=== PATIENT | male | born 1965 | race Caucasian/White ===

== ENCOUNTER 2019-01-23 18:25 | Inpatient (IN) ==
--- NOTE | 2019-01-23 19:49 | Ultrasound Report ---
US venous doppler LE RT CLINICAL HISTORY: Right leg pain COMPARISON STUDY: No previous studies for comparison. FINDINGS: Grayscale, color flow, and spectral waveform analysis was performed. There is nonocclusive thrombus within the common femoral vein. There is expansile occlusive thrombus within the superficial femoral vein. There is occlusive thrombus in the popliteal vein. There is occlusive thrombus within one of 2 posterior tibial veins. There is occlusive thrombus within the right peroneal vein. There is thrombus within the anterior tibial vein. There is thrombus within the profunda vein. IMPRESSION: Extensive acute right lower extremity DVT. Electronically signed by: Med Cruz M.D. 01/23/2019 7:48 PM
[2019-01-23 20:30] LABS: Basophils # (auto) 0.08 K/uL (0-0.2); Basophils % (auto) 0.7 %; Eosinophils # (auto) 0.37 K/uL (0-0.5); Eosinophils % (auto) 3.2 %; Hematocrit (blood only) 46.7 % (42-52); Hemoglobin 17.1 g/dL (14.0-18.0); Immature Granulocytes # (auto) 0.05 K/uL (0.00-0.02); Immature Granulocytes % (auto) 0.4 %; Lymphocytes # (auto) 2.22 K/uL (1.2-3.4); Lymphocytes % (auto) 19.5 %; Mean Corpuscular Hgb Conc 36.6 g/dL (32-36); Mean Corpuscular Volume 86.8 fL (80-100); Mean Platelet Volume 9.6 fL (7.4-10.4); Monocytes # (auto) 0.87 K/uL (0.11-0.59); Monocytes % (auto) 7.6 %; Neutrophils % (auto) 68.6 %; Platelet Count 149 K/uL (130-400); RDW Coefficient of Variation 13.2 % (11.5-14.5); RDW Standard Deviation 41.8 fL (36.4-46.3); Red Blood Count 5.38 M/uL (4.7-6.1); White Blood Count 11.39 K/uL (4.8-10.8)
[2019-01-23 20:42] LABS: INR 1.1 (0.9-1.1); Partial Thromboplastin Time 27.7 Seconds (21.0-31.0); Prothrombin Time 10.9 Seconds (9.0-12.0)
[2019-01-23 20:47] LABS: Alanine Aminotransferase 48 U/L (12-78); Albumin Level 4.2 gm/dl (3.4-5.0); Aspartate Aminotransferase 15 U/L (15-37); BUN Creatinine Ratio 15.8 (10-20); Blood Urea Nitrogen 20 mg/dl (7-18); Calcium 9.2 mg/dl (8.5-10.1); Carbon Dioxide 26 mmol/L (21-32); Chloride 106 mmol/L (98-107); Est GFR (African American) 73.1; Glucose 102 mg/dl (70-99); Potassium 3.7 mmol/L (3.5-5.1); Sodium 139 mmol/L (136-145)
[2019-01-23 20:50] LABS: Albumin Globulin Ratio 1.2 (0.9-2); Alkaline Phosphatase 121 U/L (45-117); Bilirubin,Total 1.1 mg/dl (0.2-1); Globulin 3.6 gm/dl (2.5-4.0); Total Protein 7.8 gm/dl (6.4-8.2)
[2019-01-23] MEDS ORDERED: OPTIRAY 320 125ml IV PRN (21:04)
--- NOTE | 2019-01-23 21:17 | CT Scan Report ---
CT ANGIOGRAM OF THE CHEST CLINICAL HISTORY: Atypical chest pain and shortness of breath COMPARISON STUDY: No previous studies for comparison. TECHNIQUE: Following the IV administration of 120 mL of Optiray-320, CT angiogram of the thorax was p erformed from the thoracic inlet to the lung bases utilizing the pulmonary embolus protocol. Images a re reviewed in the axial, sagittal, and coronal planes. IV contrast was administered without complica tion. MIP imaging was performed. A dose lowering technique was utilized adhering to the principles o f ALARA. CT DOSE: 560.44 mGy.cm FINDINGS: There is hepatic steatosis. No pathologically enlarged axillary mediastinal or hilar lymph nodes were visualized. There was no evidence of thoracic aortic dilatation. There are bilateral lower lobe, bilateral upper lobe, and right middle lobe pulmonary artery filling defects indicative of acute bilateral pulmonary embolism. There are no findings to indicate significa nt right ventricular strain No pleural effusions are visualized. There was no evidence of focal pulmonary consolidation. IMPRESSION: 1. Moderately extensive acute bilateral pulmonary embolism 2. Hepatic steatosis. Electronically signed by: Med Cruz M.D. 01/23/2019 9:16 PM
[2019-01-23] MEDS ORDERED: HEPARIN SODIUM/DEXTROSE 25,000 UNITS/500 ML BAG IV SCH (22:00)
[2019-01-23] MEDS ORDERED: HEPARIN SOD (PORCINE) 1000 UNIT/ML 10 ML VIAL ONE (22:24)
--- NOTE | 2019-01-23 23:05 | History & Physical Report ---
Date of Service January 23, 2019 Assessment & Plan (1) Pulmonary thromboembolism: First episode ? Car travel as predisposing factor Situational hypertension GERD, symptoms controlled past tobacco abuse Medical telemetry IV heparin Defer discussion regarding oral agent for home Rx between AM provider and patient. Patient expressed interest in NOAC. Monitor BP DVT prophylaxis. Heparin Full code History of Present Illness Chief Complaint: Right leg swelling Primary Care Provider: Dr. Leal History obtained from patient and records. Medical history significant for GERD, past tobacco abuse. 2 days history of achy painful right calf swelling worse with motion. Patient denies chest pain, S OB. Some palpitations noted at bedtime. Two round trips in the last 2 days to [place], [place]. Patient seen at urgent care center. Patient directed to the ER for further evaluation. IV heparin started at the ER for PE/DVT. No prior episodes as per patient. 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 Allergies Allergy/AdvReac Type Severity Reaction Status Date / Time No Known Allergies Allergy Unverified 01/23/19 20:49 Home Medications Home Medications Medication Instructions Recorded Confirmed Type omeprazole 20 mg PO QAM 01/23/19 01/23/19 History ranitidine HCl 75 mg PO HS PRN 01/23/19 01/23/19 History acetaminophen 325 mg PO Q6H PRN 5 Days #20 tab 01/24/19 Rx apixaban [Eliquis] 5 mg PO BID 83 Days #166 tab 01/24/19 Rx apixaban [Eliquis] 10 mg PO BID 7 Days #28 tab 01/24/19 Rx tramadol 50 mg PO Q6H PRN 4 Days #16 tab 01/24/19 Rx Past Med/Surg History Medical History No pertinent past medical history Surgical History No pertinent past surgical history Social History Preferred Language: Yi Communication Ability: Effective Beater Engineer Required: No Beliefs That Will Affect Care: None Current Living Situation: Alone Other Information That Helps Us Care for You: No Feels Safe at Home: Yes Safety Concerns: Feels Safe At This Time Smoking Status: Former smoker Do You Dip or Chew Tobacco: No ; Second Hand Exposure: No ; Tobacco Cessation Education Requested by Patient: No Hx Alcohol Use: Yes Alcohol type: beer Hx Substance Use: No Review of Systems Review of Systems: As per HPI, all 10 systems reviewed, all other ROS negative Physical Exam Physical Exam: GENERAL: Comfortable, pleasant, obese, no respiratory distress SKIN: Normal color, warm HEENT: Bespectacled, [place] palpebral conjunctivae, no ptosis, moist buccal mucosa NECK : Supple, short, no tenderness CHEST : CTA, no tenderness HEART : RRR, no obvious murmurs ABDOMEN: Some distention, nontender EXTREMITIES : Minimal RLE swelling and tenderness, no other conspicuous deformities noted NEUROLOGIC : Coherent, no facial asymmetry, no other gross focality Results & Data Vital Signs (Past 12 Hours) Vital Signs Temp Pulse Pulse Resp BP BP Pulse Ox 01/23/19 23:00 80 20 165/127 H 95 01/23/19 22:30 83 21 159/104 H 97 01/23/19 22:00 82 14 152/89 H 97 01/23/19 20:31 85 19 142/94 H 94 01/23/19 19:58 88 18 140/99 95 01/23/19 18:47 37.2 C 102 H 18 162/130 H 97 Laboratory Results Laboratory Results WBC 11.39 K/uL (4.8-10.8) H 01/23/19 20:19 RBC 5.38 M/uL (4.7-6.1) 01/23/19 20:19 Hgb 17.1 g/dL (14.0-18.0) 01/23/19 20:19 Hct 46.7 % (42-52) 01/23/19 20:19 MCV 86.8 fL (80-100) 01/23/19 20: MCH 31.8 pg (25-34) 01/23/19 20: MCHC 36.6 g/dL (32-36) H 01/23/19 20:19 RDW Std Deviation 41.8 fL (36.4-46.3) 01/23/19 20: RDW Coeff of Moody 13.2 % (11.5-14.5) 01/23/19 20: Plt Count 149 K/uL (130-400) 01/23/19 20:19 MPV 9.6 fL (7.4-10.4) 01/23/19 20:19 Immature Gran % (Auto) 0.4 % 01/23/19 20:19 Neut % (Auto) 68.6 % 01/23/19 20:19 Lymph % (Auto) 19.5 % 01/23/19 20:19 [place] % (Auto) 7.6 % 01/23/19 20:19 Eos % (Auto) 3.2 % 01/23/19 20:19 Baso % (Auto) 0.7 % 01/23/19 20:19 Immature Gran # (Auto) 0.05 K/uL (0.00-0.02) H 01/23/19 20:19 Neut # (Auto) 7.80 K/uL (1.4-6.5) H 01/23/19 20:19 Lymph # (Auto) 2.22 K/uL (1.2-3.4) 01/23/19 20:19 [place] # (Auto) 0.87 K/uL (0.11-0.59) H 01/23/19 20:19 Eos # (Auto) 0.37 K/uL (0-0.5) 01/23/19 20:19 Baso # (Auto) 0.08 K/uL (0-0.2) 01/23/19 20:19 PT 10.9 Seconds (9.0-12.0) 01/23/19 20:19 INR 1.1 (0.9-1.1) 01/23/19 20:19 APTT 27.7 Seconds (21.0-31.0) 01/23/19 20:19 PTT Ratio 1.0 01/23/19 20:19 Sodium 139 mmol/L (136-145) 01/23/19 20:19 Potassium 3.7 mmol/L (3.5-5.1) 01/23/19 20:19 Chloride 106 mmol/L (98-107) 01/23/19 20:19 Carbon Dioxide 26 mmol/L (21-32) 01/23/19 20:19 Anion Gap 7.0 (3-11) 01/23/19 20:19 BUN 20 mg/dl (7-18) H 01/23/19 20:19 Creatinine 1.28 mg/dl (0.6-1.4) 01/23/19 20:19 Est Cr Clr Drug Dosing Not Reportable 01/23/19 20:19 Est GFR ( Amer) 73.1 01/23/19 20:19 Est GFR (Non-Af Amer) 63.0 01/23/19 20:19 BUN/Creatinine Ratio 15.8 (10-20) 01/23/19 20:19 Glucose 102 mg/dl (70-99) H 01/23/19 20:19 Calcium 9.2 mg/dl (8.5-10.1) 01/23/19 20:19 Total Bilirubin 1.1 mg/dl (0.2-1) H 01/23/19 20:19 AST 15 U/L (15-37) 01/23/19 20:19 ALT 48 U/L (12-78) 01/23/19 20:19 Alkaline Phosphatase 121 U/L (45-117) H 01/23/19 20:19 Total Protein 7.8 gm/dl (6.4-8.2) 01/23/19 20:19 Albumin 4.2 gm/dl (3.4-5.0) 01/23/19 20:19 Globulin 3.6 gm/dl (2.5-4.0) 01/23/19 20:19 Albumin/Globulin Ratio 1.2 (0.9-2) 01/23/19 20:[address] chest: 1. Moderately extensive acute bilateral pulmonary embolism 2. Hepatic steatosis. Ultrasound venous RLE: Extensive acute right lower extremity DVT. Code Status & VTE Plan VTE Prophylaxis Plan VTE Prophylaxis will be ordered: Yes
[2019-01-23 23:14] LABS: Magnesium 2.2 mg/dl (1.8-2.4); Troponin I < 0.015 ng/ml (0-0.045)
[2019-01-24] MEDS ORDERED: PROMETHAZINE HCL 12.5 MG in SODIUM CHLORIDE 0.9% 50 ML IV PRN (00:11)
[2019-01-24] MEDS ORDERED: TRAMADOL HCL 50 MG TABLET PO PRN (00:11)
[2019-01-24] MEDS ORDERED: ACETAMINOPHEN 325 MG TAB PO PRN (00:11)
--- NOTE | 2019-01-24 01:07 | Emergency Department Note ---
Entered by Aron Hinson acting as a scribe for ED Provider Note CHIEF COMPLAINT: Right leg pain HISTORY OF PRESENT ILLNESS: The patient is a 53 year old male who presents to the Emergency Room with complaints of constant and aching right leg pain starting yesterday. The patient states he drove 400 miles in the last 2 days. He states yesterday his right calf started to hurt. He notes today he noticed his right leg started to swell up. He states he went to an emergency care facility at [facility] and they told him to come to the ED. He notes he has no prior history of blood clots. He notes his PCP is at the [facility]. Pt denies LOC, headache, fevers, chills, diaphoresis, visual changes, neck pain, chest pain, breathing difficulties, nausea, vomiting, abdominal pain, back pain, melena, hematochezia, urinary symptoms, numbness, lymphadenopathy, rash, or other complaints. REVIEW OF SYSTEMS: See HPI for pertinent positives and negatives. A total of ten systems were reviewed and were otherwise negative. PMHx/PSHx: No pertinent medical history. SOCIAL HISTORY: Patient lives at home. PHYSICAL EXAM: GENERAL: Awake, alert, well-appearing, in no distress HENT: Normocephalic, atraumatic. Oropharynx unremarkable. EYES: PERRL. Normal conjunctiva. Sclera non-icteric. NECK: Inspection normal. Non-tender. Supple. No nuchal rigidity. FROM. No masses. RESPIRATORY: Clear to auscultation. No wheezes. No rales. Normal respiratory effort. CARDIAC: Normal rate. Normal rhythm. No murmurs. No rubs. Extremities warm and well perfused. Pulses equal. No JVD. GI: Soft, non-distended. No tenderness to palpation. No rebound or guarding. No masses. MUSCULOSKELETAL: Atraumatic. The back is symmetrical on inspection without obvious abnormality. No joint edema. LOWER EXTREMITIES: Calves are non-tender. No edema. No discoloration. Right leg is larger than left. NEURO: Normal sensorium. No sensory or motor deficits noted. SKIN: No rash or jaundice noted. EMERGENCY DEPARTMENT COURSE: 1852: Past medical records reviewed. The patient was evaluated in room B4B, and a complete history and physical examination were performed. 1999: I reevaluated the patient. I told the patient about the need for blood work and additional imaging and he agreed. 2152: I updated the patient on his labs and imaging. I told him he needed to be admited and he agreed. 2158: I discussed the patient's case with Dr. Baltazar Mustafa Hospitalist. He will evaluate the patient for further management MEDICAL DECISION MAKING: B4 Triage Nursing notes reviewed and agree them. The patient's history was concerning for swelling and pain in the leg. Differential diagnosis: Etiologies such as DVT, joint effusion, infection, trauma, muscular, lymphedema, idiopathic, CHF, as well as others were entertained.. Physical examination: The physical examination revealed no signs of infection. Neurovascularly intact. ER treatment provided: Monitoring IV heparin bolus and drip On reassessment the patient felt stable. Diagnostics interpreted by me: The labs revealed slight leukocytosis on CBC. Chemistry panel and coags unremarkable. Imaging studies: Ultrasound imaging of the right leg revealed an extensive DVT throughout the entire lower extremity. CT PE study showed extensive bilateral pulmonary emboli. Consultation: A consultation was placed with the hospitalist. The case was discussed and diagnostics were reviewed. The patient was evaluated in the ER for further treatment. IMPRESSION: Bilateral pulmonary emboli, extensive right leg DVT PLAN: Discharged. The scribe's documentation has been prepared under my direction and personally reviewed by me in its entirety. I confirm that the note above accurately refl ects all work, treatment, procedures, and medical decision making performed by me. Impression & Plan Bilateral pulmonary embolism, Deep vein thrombosis (DVT) of right lower extremity Past Med/Surg History Medical History No pertinent past medical history Surgical History No pertinent past surgical history Social History Preferred Language: Danish Communication Ability: Effective Telephone Information Supervisor Required: No Beliefs That Will Affect Care: None Current Living Situation: Alone Other Information That Helps Us Care for You: No Feels Safe at Home: Yes Safety Concerns: Feels Safe At This Time Smoking Status: Former smoker Do You Dip or Chew Tobacco: No ; Second Hand Exposure: No ; Tobacco Cessation Education Requested by Patient: No Hx Alcohol Use: Yes Alcohol type: beer Hx Substance Use: No Results & Data Vital Signs Vital Signs - 24 hr 01/23/19 18:47 01/23/19 19:58 01/23/19 20:31 Temperature 37.2 C Temperature Source Oral Sepsis Recent Fever Within 48 Hours No Sepsis Action Taken by Nursing No Action Required Pulse Rate 102 H 85 Pulse Rate [Finger] 88 Pulse Rate from SpO2 Sensor 83 Respiratory Rate 18 18 19 Blood Pressure 162/130 H 142/94 H Blood Pressure [Right Arm] 140/99 Blood Pressure Mean 140 110 Blood Pressure Mean [Right Arm] 112 Blood Pressure Position Sitting Pulse Oximetry 97 95 94 Oxygen Delivery Method Room Air Room Air Room Air 01/23/19 22:00 01/23/19 22:30 01/23/19 23:00 Temperature Temperature Source Sepsis Recent Fever Within 48 Hours Sepsis Action Taken by Nursing Pulse Rate 82 83 80 Pulse Rate [Finger] Pulse Rate from SpO2 Sensor 82 82 81 Respiratory Rate 14 21 20 Blood Pressure 152/89 H 159/104 H 165/127 H Blood Pressure [Right Arm] Blood Pressure Mean 110 122 139 Blood Pressure Mean [Right Arm] Blood Pressure Position Pulse Oximetry 97 97 95 Oxygen Delivery Method Room Air Room Air Room Air Home Medications Current Medication List: was personally reviewed by me Laboratory Data Attestation: I reviewed the patient's lab results. Result diagrams: 01/23/19 20:19 01/23/19 20:19 Lab Results 01/23/19 01/23/19 01/23/19 Range/Units 20:19 20:19 20:19 WBC 11.39 H (4.8-10.8) K/uL RBC 5.38 (4.7-6.1) M/uL Hgb 17.1 (14.0-18.0) g/dL Hct 46.7 (42-52) % MCV 86.8 (80-100) fL MCH 31.8 (25-34) pg MCHC 36.6 H (32-36) g/dL RDW Std Deviation 41.8 (36.4-46.3) fL RDW Coeff of Moody 13.2 (11.5-14.5) % Plt Count 149 (130-400) K/uL MPV 9.6 (7.4-10.4) fL Immature Gran % (Auto) 0.4 % Neut % (Auto) 68.6 % Lymph % (Auto) 19.5 % [place] % (Auto) 7.6 % Eos % (Auto) 3.2 % Baso % (Auto) 0.7 % Immature Gran # (Auto) 0.05 H (0.00-0.02) K/uL Neut # (Auto) 7.80 H (1.4-6.5) K/uL Lymph # (Auto) 2.22 (1.2-3.4) K/uL [place] # (Auto) 0.87 H (0.11-0.59) K/uL Eos # (Auto) 0.37 (0-0.5) K/uL Baso # (Auto) 0.08 (0-0.2) K/uL PT 10.9 (9.0-12.0) Seconds INR 1.1 (0.9-1.1) APTT 27.7 (21.0-31.0) Seconds PTT Ratio 1.0 Sodium 139 (136-145) mmol/L Potassium 3.7 (3.5-5.1) mmol/L Chloride 106 (98-107) mmol/L Carbon Dioxide 26 (21-32) mmol/L Anion Gap 7.0 (3-11) BUN 20 H (7-18) mg/dl Creatinine 1.28 (0.6-1.4) mg/dl Est Cr Clr Drug Dosing Not Reportable Est GFR ( Amer) 73.1 Est GFR (Non-Af Amer) 63.0 BUN/Creatinine Ratio 15.8 (10-20) Glucose 102 H (70-99) mg/dl Calcium 9.2 (8.5-10.1) mg/dl Magnesium 2.2 (1.8-2.4) mg/dl Total Bilirubin 1.1 H (0.2-1) mg/dl AST 15 (15-37) U/L ALT 48 (12-78) U/L Alkaline Phosphatase 121 H (45-117) U/L Troponin I < 0.015 (0-0.045) ng/ml Total Protein 7.8 (6.4-8.2) gm/dl Albumin 4.2 (3.4-5.0) gm/dl Globulin 3.6 (2.5-4.0) gm/dl Albumin/Globulin Ratio 1.2 (0.9-2) Administered Medications Heparin Sodium/Dextrose (Heparin Sodium/Dextrose) 25,000 units in 500 mls @ 0.02 mls/hr IV .Q24H EDMUND; Protocol Stop: 02/22/19 21:59 Last Admin: 01/23/19 22:28 Dose: 1,550 units/hr, 31 mls/hr Documented by: [id number] Cosigned by: [id number] Discontinued Medications Heparin Sodium (Porcine) (Heparin Iv Bolus) Confirm Administered Dose 10,000 units .ROUTE .STK-MED ONE Stop: 01/23/19 22:25 Last Admin: 01/23/19 22:27 Dose: 7,000 units Documented by: [id number] Cosigned by: [id number] Heparin Sodium/Dextrose () 1 ea N/A NOW STA; Protocol Stop: 01/23/19 21:50 Last Admin: 01/23/19 22:29 Dose: Not Given Documented by: [id number] Ioversol (Optiray 320 125ml) 120 ml IV ONCE PRN PRN Reason: Interaction Checking Stop: 01/27/19 21:03 Last Admin: 01/23/19 21:05 Dose: 1 ml Documented by: [id number] Imaging Data Radiologist's Impression: Radiology results as stated below per my review and the radiologist's interpretation: US venous doppler LE RT CLINICAL HISTORY: Right leg pain COMPARISON STUDY: No previous studies for comparison. FINDINGS: Grayscale, color flow, and spectral waveform analysis was performed. There is nonocclusive thrombus within the common femoral vein. There is expansile occlusive thrombus within the superficial femoral vein. There is occlusive thrombus in the popliteal vein. There is occlusive thrombus within one of 2 posterior tibial veins. There is occlusive thrombus within the right peroneal vein. There is thrombus within the anterior tibial vein. There is thrombus within the profunda vein. IMPRESSION: Extensive acute right lower extremity DVT. Electronically signed by: Med Cruz M.D. 01/23/2019 7:[address] ANGIOGRAM OF THE CHEST CLINICAL HISTORY: Atypical chest pain and shortness of breath COMPARISON STUDY: No previous studies for comparison. TECHNIQUE: Following the IV administration of 120 mL of Optiray-320, CT angiogram of the thorax was performed from the thoracic inlet to the lung bases utilizing the pulmonary embolus protocol. Images are reviewed in the axial, sagittal, and coronal planes. IV contrast was administered without complication. MIP imaging was performed. A dose lowering technique was utilized adhering to the principles of ALARA. CT DOSE: 560.44 mGy.cm FINDINGS: There is hepatic steatosis. No pathologically enlarged axillary mediastinal or hilar lymph nodes were visualized. There was no evidence of thoracic aortic dilatation. There are bilateral lower lobe, bilateral upper lobe, and right middle lobe pulmonary artery filling defects indicative of acute bilateral pulmonary embolism. There are no findings to indicate significant right ventricular strain No pleural effusions are visualized. There was no evidence of focal pulmonary consolidation. IMPRESSION: 1. Moderately extensive acute bilateral pulmonary embolism 2. Hepatic steatosis. Electronically signed by: Med Cruz M.D. 01/23/2019 9:16 PM Blood Pressure Blood Pressure Findings: Elevated blood pressure Blood Pressure Disposition: further management by hospitalist Discharge Plan Visit Data *Final* Discharge Date/Time: 01/23/19 23:46 Chief Complaint: Leg Injury/Pain Stated Complaint: RT LEG PAIN AND SWELLING ED Provider: Carlos Barakat Discharge Problem: Bilateral pulmonary embolism, Deep vein thrombosis (DVT) of right lower extremity Patient Disposition: Admitted As Inpatient Discharge Instructions Interventions: ED Discharge Assessment Last Done: 01/23/19 23:46 Critical Care Time Critical Care Time: Yes Total Critical Care Time: 35 Attestation: I have personally spent 35 minutes of critical care time in the direct management of this patient. This includes bedside care, interpretation of diagnostic studies, and testing, discussion with consultants, patient, and family members, and other required patient management activities. This 35 minutes is in excess of all separately billable procedures. Discharge Problem: Deep vein thrombosis (DVT) of right lower extremity Qualifiers: Affected thrombotic vein of extremity: unspecified vein of extremity Chronicity: unspecified Qualified Code(s): I82.401 - Acute embolism and thrombosis of unspecified deep veins of right lower extremity The scribe's documentation has been prepared under my direction and personally reviewed by me in its entirety. I confirm that the note above accurately reflects all work, treatment, procedures, and medical decision making performed by me.
[2019-01-24] MEDS ORDERED: NSS + 20MEQ KCL 20 MEQ/1,000 ML BAG IV STA (01:21)
[2019-01-24 04:56] LABS: Basophils # (auto) 0.05 K/uL (0-0.2); Basophils % (auto) 0.5 %; Eosinophils # (auto) 0.77 K/uL (0-0.5); Eosinophils % (auto) 8.3 %; Hematocrit (blood only) 43.5 % (42-52); Hemoglobin 15.4 g/dL (14.0-18.0); Immature Granulocytes # (auto) 0.03 K/uL (0.00-0.02); Immature Granulocytes % (auto) 0.3 %; Lymphocytes # (auto) 2.63 K/uL (1.2-3.4); Lymphocytes % (auto) 28.3 %; Mean Corpuscular Hgb Conc 35.4 g/dL (32-36); Mean Corpuscular Volume 87.2 fL (80-100); Monocytes # (auto) 0.71 K/uL (0.11-0.59); Monocytes % (auto) 7.6 %; Platelet Count 138 K/uL (130-400); RDW Coefficient of Variation 13.2 % (11.5-14.5); RDW Standard Deviation 42.2 fL (36.4-46.3); Red Blood Count 4.99 M/uL (4.7-6.1); White Blood Count 9.29 K/uL (4.8-10.8)
[2019-01-24 05:16] LABS: Partial Thromboplastin Ratio 2.3
[2019-01-24 05:34] LABS: Partial Thromboplastin Time 62.1 Seconds (21.0-31.0)
[2019-01-24] MEDS ORDERED: PANTOprazole 40 MG TAB PO SCH (09:00)
[2019-01-24] MEDS ORDERED: APIXABAN 5 MG TABLET PO ONE (09:40)
--- NOTE | 2019-01-24 13:35 | Hospitalist Progress Note ---
Date of Service January 24, 2019 Assessment & Plan (1) Deep vein thrombosis (DVT) of right lower extremity: acute deep vein thrombosis of right lower extremity, acute pumonary embolism without acute cor pulmonale, anticoagulated by anticoagulation treatment -US venous doppler LE RT There is nonocclusive thrombus within the common femoral vein. There is expansile occlusive thrombus within the superficial femoral vein. There is occlusive thrombus in the popliteal vein. There is occlusive thrombus within one of 2 posterior tibial veins. There is occlusive thrombus within the right peroneal vein. There is thrombus within the anterior tibial vein. There is thrombus within the profunda vein. IMPRESSION: Extensive acute right lower extremity DVT. -CTA: There are bilateral lower lobe, bilateral upper lobe, and right middle lobe pulmonary artery filling defects indicative of acute bilateral pulmonary embolism. There are no findings to indicate significant right ventricular strain -[facility] was check and patient has no active controlled substance prescriptions prior to this hospital stay. Because of deep vein thrombosis and pulmonary embolism, patient may take tramadol 50 mg every 6 hours as needed for moderate to severe pain, acetaminophen 325 every 6 hours as needed for mild pain of fever -Patient should avoid ibuprofen for pain because he is to be on blood thinners with Eliquis. Patient was switched from heparin IV in the hospital and started on Eliquis 10 mg. Patient will need to take Eliquis 10 mg twice a day for the first 7 days and then followed by 5 mg twice a day Patient will need to be on Eliquis anticoagulation for at least 3 months because as per history this appeared to be a provoked thrombosis from frequent long car rides. However, patient will need to follow up with primary care doctor to assess for hypercoagulability work up and base total length of anticoagulation as per primary care doctor Hepatic steatosis -encourage a low fat diet because of Hepatic steatosis seen in CTA imaging follow up 01/27/2019 11:20 AM Provider Keron Leal MD Department [facility] Discharge Diagnosis acute deep vein thrombosis of right lower extremity, acute pumonary embolism without acute cor pulmonale, anticoagulated by anticoagulation treatment, Hepatic steatosis Subjective Patient hemodynamically stable. breathing on room air. no acute shortness of breath. able to ambulate on room air. no chest pain. no palpitations. no headache. no dizziness. no lightheadedness. Patient transitioned from heparin IV to eliquis. discharge instructions discussed at length Physical Exam Constitutional: WD/WN, vitals as above Eyes: PERRL, conjunctivae normal, anicteric sclerae EOM intact bilaterally ENMT: external ear and nose normal, oropharynx normal Neck: trachea midline, no thyromegaly normal visual inspection Respiratory: normal respiratory effort, lungs clear to auscultation Cardiovascular: Rate/Rhythm: regular rate and regular rhythm Gastrointestinal (Abdomen): normal bowel sounds, soft, nontender, no hepatosplenomegaly Musculoskeletal: Head/Neck/Chest: normocephalic and head atraumatic Extremities: + lower leg abnormality (right leg swellin, right calf swelling) Neurologic: PERRL, EOMI, accommodation nl, no face palsy, no dysarthria CN's II-XI intact bilaterally Psychiatric: A+Ox3, euthymic affect Results & Data Vital Signs (Past 12 Hours) Vital Signs Temp Pulse Pulse Resp BP BP Pulse Ox 01/24/19 12:00 36.7 C 77 18 131/86 95 01/24/19 08:30 72 01/24/19 07:00 36.5 C 74 20 138/86 94 01/24/19 03:33 36.9 C 84 20 139/89 92 (1) Deep vein thrombosis (DVT) of right lower extremity Affected thrombotic vein of extremity: unspecified vein of extremity Chronicity: unspecified Qualified Code(s): I82.401 - Acute embolism and thrombosis of unspecified deep veins of right lower extremity
--- NOTE | 2019-01-24 13:42 | Discharge Summary ---
Date of Service January 24, 2019 Admission HPI Per Admitting Provider History obtained from patient and records. Medical history significant for GERD, past tobacco abuse. 2 days history of achy painful right calf swelling worse with motion. Patient denies chest pain, S OB. Some palpitations noted at bedtime. Two round trips in the last 2 days to [place], [place]. Patient seen at urgent care center. Patient directed to the ER for further evaluation. IV heparin started at the ER for PE/DVT. No prior episodes as per patient. Principal Diagnosis acute deep vein thrombosis of right lower extremity, acute pumonary embolism without acute cor pulmonale, anticoagulated by anticoagulation treatment, Hepatic steatosis Discharge Exam Constitutional WD/WN, vitals as above Eyes PERRL, conjunctivae normal, anicteric sclerae EOM intact bilaterally ENMT external ear and nose normal, oropharynx normal Neck trachea midline, no thyromegaly normal visual inspection Respiratory normal respiratory effort, lungs clear to auscultation Cardiovascular Rate/Rhythm: regular rate and regular rhythm Gastrointestinal (Abdomen) normal bowel sounds, soft, nontender, no hepatosplenomegaly Musculoskeletal Head/Neck/Chest: normocephalic and head atraumatic Extremities: + lower leg abnormality (right leg swellin, right calf swelling) Neurologic PERRL, EOMI, accommodation nl, no face palsy, no dysarthria CN's II-XI intact bilaterally Psychiatric A+Ox3, euthymic affect Discharge Data Allergies Allergy/AdvReac Type Severity Reaction Status Date / Time No Known Allergies Allergy Unverified 01/23/19 20:49 Consultations 01/23/19 22:07 ED Decision to Admit Stat 01/24/19 08:31 Consult Case Management - Discharge Planning Routine Ordered Studies 01/23/19 18:54 US venous doppler LE RT Stat 01/23/19 19:59 CT angio chest PE protocol Stat Hospital Course (1) Deep vein thrombosis (DVT) of right lower extremity: acute deep vein thrombosis of right lower extremity, acute pumonary embolism without acute cor pulmonale, anticoagulated by anticoagulation treatment -US venous doppler LE RT There is nonocclusive thrombus within the common femoral vein. There is expansile occlusive thrombus within the superficial femoral vein. There is occlusive thrombus in the popliteal vein. There is occlusive thrombus within one of 2 posterior tibial veins. There is occlusive thrombus within the right peroneal vein. There is thrombus within the anterior tibial vein. There is thrombus within the profunda vein. IMPRESSION: Extensive acute right lower extremity DVT. -CTA: There are bilateral lower lobe, bilateral upper lobe, and right middle lobe pulmonary artery filling defects indicative of acute bilateral pulmonary embolism. There are no findings to indicate significant right ventricular strain [facility] and patient has no active controlled substance prescriptions prior to this hospital stay. Because of deep vein thrombosis and pulmonary embolism, patient may take tramadol 50 mg every 6 hours as needed for moderate to severe pain, acetaminophen 325 every 6 hours as needed for mild pain of fever -Patient should avoid ibuprofen for pain because he is to be on blood thinners with Eliquis. Patient was switched from heparin IV in the hospital and started on Eliquis 10 mg. Patient will need to take Eliquis 10 mg twice a day for the first 7 days and then followed by 5 mg twice a day Patient will need to be on Eliquis anticoagulation for at least 3 months because as per history this appeared to be a provoked thrombosis from frequent long car rides. However, patient will need to follow up with primary care doctor to assess for hypercoagulability work up and base total length of anticoagulation as per primary care doctor Hepatic steatosis -encourage a low fat diet because of Hepatic steatosis seen in CTA imaging follow up 01/27/2019 11:20 AM Provider Keron Leal MD Department [facility] Discharge Diagnosis acute deep vein thrombosis of right lower extremity, acute pumonary embolism without acute cor pulmonale, anticoagulated by anticoagulation treatment, Hepatic steatosis Total Time Total Time Spent Total Time Spent (In Minutes): 40 minutes Total Time Includes: Examination of the Patient, Discharge Planning, Medication Reconciliation and Communication With Other Providers Discharge Plan Discharge Items Patient Disposition: Home - Self-Care Reason For Visit: PE DVT Discharge Diagnosis: acute deep vein thrombosis of right lower extremity, acute pumonary embolism without acute cor pulmonale, anticoagulated by anticoagulation treatment, Hepatic steatosis Condition: Good Discharge Goals: Improve disease control Activity: Per 'Additional Instructions' section Non-emergency contact: Primary Care Provider Call non-emergency contact if: you have any medication questions Follow-up/Referrals: PCP,NO [Physician] - Diet: Low Fat Addtl Provider Instructions: [facility] was check and patient has no active controlled substance prescriptions prior to this hospital stay. Because of deep vein thrombosis and pulmonary embolism, patient may take tramadol 50 mg every 6 hours as needed for moderate to severe pain, acet aminophen 325 every 6 hours as needed for mild pain of fever Patient should avoid ibuprofen for pain because he is to be on blood thinners with Eliquis. Patient was switched from heparin IV in the hospital and started on Eliquis 10 mg. Patient will need to take Eliquis 10 mg twice a day for the first 7 days and then followed by 5 mg twice a day Patient will need to be on Eliquis anticoagulation for at least 3 months because as per history this appeared to be a provoked thrombosis from frequent long car rides. However, patient will need to follow up with primary care doctor to assess for hypercoagulability work up and base total length of anticoagulation as per primary care doctor encourage a low fat diet because of Hepatic steatosis seen in imaging 01/27/2019 11:20 AM Provider Keron Leal MD Department Family [facility] Prescriptions: New Eliquis 5 mg Tablet 10 mg PO BID 7 Days Qty: 28 RF: 0 tramadol 50 mg Tablet 50 mg PO Q6H PRN (Reason: moderate to severe pain) 4 Days Qty: 16 RF: 0 acetaminophen 325 mg tablet 325 mg PO Q6H PRN (Reason: fever or mild pain) 5 Days Qty: 20 RF: 0 Eliquis 5 mg tablet 5 mg PO BID 83 Days Qty: 166 RF: 0 Continued ranitidine HCl 75 mg Tablet 75 mg PO HS PRN (Reason: Acid Reflux) RF: 0 omeprazole 20 mg capsule,delayed release(DR/EC) 20 mg PO QAM RF: 0 Discontinued ibuprofen 200 mg Tablet 400 mg PO QID PRN (Reason: Pain) RF: 0 Stand-Alone Forms: [facility] Discharge Orders: Discharge Order (Routine); Ordered 01/24/19 Ordered By: Gamal Godinez Admission Data Admit Date/Time: 01/23/19 23:02 Attending Provider: Gamal Godinez Admit Provider: Jeremy Ledesma Primary Care Provider: Keron Leal Other Providers: Jeremy Ledesma Service: Telemetry Medical
[2019-01-24] MEDS ORDERED: APIXABAN 5 MG TABLET PO SCH (21:00)
== END 2019-01-24 14:15 | disposition home or self-care (01) | DRG 299 ==
LOC: ED 18:25 → 2W 23:02